=== PATIENT | female | born 2000 | race Hispanic/Latino ===

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

== ENCOUNTER 2018-01-01 23:34 | Inpatient (IN) | payer OTHER ==
[2018-01-02] MEDS: AMPICILLIN SOD 2 GM in APPROPRIATE DILUENT 20 ML IV (01:37)
[2018-01-02] MEDS: LACTATED RINGER'S 1000 ML IV (01:37)
[2018-01-02 01:40] LABS: HEMATOCRIT 29.2 % (36.0-47.0); MEAN CORPUSCULAR HEMOGLOBIN 24.2 pg (27.0-33.0); MEAN CORPUSCULAR HGB CONC 30.8 g/dl (32.0-36.5); MEAN CORPUSCULAR VOLUME 78.5 fl (80.0-96.0); PLATELET COUNT, AUTOMATED 210 10^3/uL (150-450); RED BLOOD COUNT 3.72 10^6/uL (4.00-5.40); RED CELL DISTRIBUTION WIDTH 16.8 % (11.5-14.5); WHITE BLOOD COUNT 14.1 10^3/uL (4.0-10.0)
[2018-01-02] MEDS: LR 1,000 ML IV (02:46)
[2018-01-02] MEDS: OXYTOCIN DRIP 30 UNITS in APPROPRIATE DILUENT 1 EA IV (03:29)
[2018-01-02 03:40] LABS: CHLAMYDIA DNA AMPLIFICATION NEGATIVE (NEGATIVE); GC DNA AMPLIFICATION NEGATIVE (NEGATIVE)
[2018-01-02] MEDS ORDERED: FENTANYL 2MCG/ML ROPIVACAINE 0.2% IN 0.9% NACL 200ML IVBAG As Ordered ×2 (03:47→03:52)
[2018-01-02] MEDS ORDERED: EPIDURAL COMMENT XX (05:00)
[2018-01-02] MEDS ORDERED: ONDANSETRON 4MG/2ML VIAL (J2405) IV (05:00)
[2018-01-02] MEDS ORDERED: diphenhydrAMINE INJ 50MG/ML VIAL (J1200) IV (05:00)
[2018-01-02] MEDS ORDERED: EPIDURAL/PCA KEYS XX (05:00)
[2018-01-02] MEDS ORDERED: NALOXONE INJ 0.4 MG/1 ML VIAL (J2310) IV (05:00)
[2018-01-02] MEDS ORDERED: REFRIGERATOR IV KEYS XX (05:00)
[2018-01-02] MEDS ORDERED: LACTATED RINGER'S 1000 ML IV (05:00)
[2018-01-02] MEDS ORDERED: FENTANYL/ROPIVACAINE/NACL BAG 200 ML EPIDURAL (05:00)
[2018-01-02] MEDS: AMPICILLIN SOD 1 GM in APPROPRIATE DILUENT 10 ML IV ×2 (05:28→09:53)
[2018-01-02] MEDS: ePHEDrine SULFATE 25 MG/5 ML(5MG/ML) SYRINGE IV (06:05)
[2018-01-02] MEDS ORDERED: ACETAMINOPHEN 500 MG TAB As Ordered (12:12)
[2018-01-02] MEDS: ACETAMINOPHEN 500 MG TAB PO (12:14)
[2018-01-02 13:59] LABS: CORD GAS ABE A -2.8; CORD GAS HCO3 A 22.6 MEQ/L; CORD GAS O2 SAT A 45.9 %; CORD GAS PCO2 A 41.6 mmHg; CORD GAS PH A 7.353 UNITS; CORD GAS SBC A 20.8 MEQ/L; CORD GAS TCO2 A 23.9 MEQ/L
[2018-01-02] MEDS ORDERED: RHOGAM 300 MCG (1500 IU) INJ (J2790) IM (14:00)
[2018-01-02] MEDS ORDERED: DIBUCAINE 1% OINTMENT 30GM TOP (14:00)
[2018-01-02] MEDS ORDERED: OXYTOCIN DRIP 30 UNITS in APPROPRIATE DILUENT 1 EA IV (14:00)
[2018-01-02] MEDS ORDERED: METHYLERGONOVINE MALEATE 0.2 MG TAB PO (14:00)
[2018-01-02] MEDS ORDERED: ACETAMINOPHEN 500 MG TAB PO (14:00)
[2018-01-02] MEDS ORDERED: IBUPROFEN 800 MG TAB PO (14:00)
[2018-01-02] MEDS ORDERED: MOM 30ML SUSPENSION UDC PO (14:00)
[2018-01-02] MEDS ORDERED: DOCUSATE SODIUM 100 MG CAP PO (14:00)
[2018-01-02] MEDS ORDERED: ANUSOL HC CREAM 30GM TOP (14:00)
[2018-01-02 14:01] LABS: CORD GAS ABE V -0.8; CORD GAS HCO3 V 24.3 MEQ/L; CORD GAS O2 SAT V 61.3 %; CORD GAS PCO2 V 41.6 mmHg; CORD GAS PH V 7.384 UNITS; CORD GAS PO2 V 24.7 mmHg; CORD GAS SBC V 22.8 MEQ/L; CORD GAS TCO2 V 25.6 MEQ/L
[2018-01-02] MEDS: MEASLES,MUMPS,RUBELLA VACCINE INJ (MMR-II) (90707) SC (18:19)
[2018-01-02 20:07] LABS: HEMATOCRIT 26.3 % (36.0-47.0); HEMOGLOBIN 8.3 g/dl (12.0-15.5); MEAN CORPUSCULAR HEMOGLOBIN 24.4 pg (27.0-33.0); MEAN CORPUSCULAR HGB CONC 31.6 g/dl (32.0-36.5); MEAN CORPUSCULAR VOLUME 77.4 fl (80.0-96.0); PLATELET COUNT, AUTOMATED 200 10^3/uL (150-450)
[2018-01-03 07:11] LABS: HEMATOCRIT 24.8 % (36.0-47.0); HEMOGLOBIN 7.7 g/dl (12.0-15.5); MEAN CORPUSCULAR HEMOGLOBIN 23.9 pg (27.0-33.0); PLATELET COUNT, AUTOMATED 188 10^3/uL (150-450); RED BLOOD COUNT 3.22 10^6/uL (4.00-5.40); RED CELL DISTRIBUTION WIDTH 16.9 % (11.5-14.5); WHITE BLOOD COUNT 18.8 10^3/uL (4.0-10.0)
[2018-01-03] MEDS: PRENATAL VITAMINS CHEWABLE TABLET PO (07:54)
[2018-01-03] MEDS: INFLUENZA QUADRIVALENT PF VACCINE 0.5ML SYRINGE (90686) IM (09:00)
== END 2018-01-03 10:00 | disposition home or self-care (01) | DRG 775 ==
LOC: M LDO 23:34 → M LDI 01-02 01:31 → M OBS 01-02 17:57
PROVIDERS: Obstetrics & Gynecology
PROC: 10E0XZZ Delivery of Products of Conception, External Approach (ICD-10-PCS; principal; 2018-01-02)
PROC: 10907ZC Drainage of Amniotic Fluid, Therapeutic from Products of Conception, Via Natural or Artificial Opening (ICD-10-PCS; 2018-01-02)
PROC: 0HQ9XZZ Repair Perineum Skin, External Approach (ICD-10-PCS; 2018-01-02)
DX: O99.824 Streptococcus B carrier state complicating childbirth (principal); Z37.0 Single live birth; Z3A.39 39 weeks gestation of pregnancy; O70.0 First degree perineal laceration during delivery; O69.3XX0 Labor and delivery complicated by short cord, not applicable or unspecified

== ENCOUNTER → 2018-10-29 | Outpatient (REF) | payer OTHER ==
[~2018-10-29] MED LIST: ANUS2.5C2 TOP; IBUP-1114 PO; MAPA500T2 PO; NUPE1OIN2 TOP; PRENTAB9 PO
== END ==
LOC: M LAB REF 17:10
PROVIDERS: ATTEND Advanced Practice Midwife
DX: R30.0 Dysuria (principal)

== ENCOUNTER 2020-01-01 03:57 | Inpatient (IN) | payer OTHER ==
[~2020-01-01] VITALS: Ht 162.6 cm; Wt 77.3 kg
[2020-01-01] MEDS ORDERED: OXYTOCIN 30 UNITS IN 0.9% NaCl 500ML IV BAG (J2590) As Ordered ONE (04:07)
--- NOTE | 2020-01-01 04:45 | DNPDOC ---
[facility] Delivery Note Delivery Note DATE OF DELIVERY: 01/01/20 at 0408 PREDELIVERY DIAGNOSIS: 39-3/7 weeks' gestation and labor. POST DELIVERY DIAGNOSIS: Delivered. PROCEDURE: Spontaneous vaginal delivery. SENIOR RISK ANALYST: Parish De La Cruz CNM, ALEX ANESTHESIA: none. ESTIMATED BLOOD LOSS: 250 mL. FINDINGS: 8 pounds 2 ounces; 3690 grams; male , Score 8/9, precipitous labor. DELIVERY SUMMARY: Patient is a 19-year-old female who is now a who presented to L&D in active labor. She is a patient of [facility]. Upon arrival to the unit her water broke spontaneously and patient reported she felt like she had to push. She was examined by a nurse and found to be fully dilated. I was called into the room to assist with the delivery. The patient was fully dilated at 0408 and had a vaginal delivery at 0409. Dr. Mccallum was notified with arrival of patient. She pushed and the head delivered JOSE with restitution The anterior shoulder delivered with ease and the corpus immediately followed. The baby was placed [id number] active and crying. The cord was clamped x2 and cut by the patient. The placenta delivered spontaneously and intact 0413. Uterine hemostasis was achieved via fundal massage and IM Pitocin. The vagina, cervix, and perineum was inspected and found to be intact. She plans to attempt . All counts of instruments and sponges are correct. Both mom and baby are in stable condition. PARISH DE LA CRUZ CNM Jan 01, 2020 04:45
--- NOTE | 2020-01-01 04:45 | HPEPDOC ---
Obstetrical History & Physical General Date of Admission Jan 01, 2020 at 04:12 History of Present Illness 19yo at 39+2 presented in active labor and was delivered by YOLIE De La Cruz, her delivery was uncomplicated. She denies any complaints at this time. Past Medical History Past Obstetrical History : Past Obstetrical History: Multigravida Past Medical History Medical History Denies Surgical History: Denies/None Family History Significant Family History: No pertinent family hx Social History Marital Status: Family situation: Spouse/partner home Psychosocial History: No pertinent psych hx * Smoker: non-smoker Alcohol: Denies Drugs: denies Imunizations Tdap status: current Influenza Status: needs Allergies Coded Allergies: No Known Allergies (Unverified , 01/01/20) Medications Scheduled No.137/Iron/Folic Acd ( Vitamin Tablet) 1 Tab Tab, 1 TAB PO DAILY Scheduled PRN Acetaminophen (Mapap) 500 Mg Tab, 1,000 MG PO Q6HP PRN for MILD PAIN (PS 1-4) Dibucaine (Nupercainal) 1 % Oin, 1 DOSE TOP Q4HP PRN for PAIN APPLY TO PERINEUM Hydrocortisone (Anusol-Hc) 2.5 % Cre, 1 EACH TOP Q4HP PRN for DISCOMFORT APPLY TO HEMORRHOIDS Ibuprofen (Ibuprofen) 400 Mg Tab, 800 MG PO Q8HP PRN for MODERATE PAIN (PS 5-7) Physical Examination Physical Examination GENERAL: Alert and oriented times three. BREAST: . ABDOMEN: Gravid and non-tender to touch. FETUS: Is vertex (VTX) by sterile vaginal examination (SVE), fetus is vertex (VTX) by Howie. HEART RATE: Regular rate and rhythm. LUNGS: Clear to auscultation (CTA). EXTREMITIES: No edema. No clonus. Deep tendon reflexes (DTRs) + . Laboratory Data [facility] Laboratory Tests 2 01/01/20 04:28: Serology Scanned Report Hepatitis B Testing Urine Culture: Contaminated Pertinent Laboratoy Data Blood Type: O+ RBC Antibody Screen: Negative HIV: Negative Hepatitis B: Negative Rapid Plasma Reagin: Nonreactive Rubella: Immune Varicella: Immune Chlamydia/Gonorrhea: Negative Group B Streptococcus: Negative Glucose Tolerance Test: 105 Assessment/Plan Assessment 19yo at 39+2 presented in active labor and was delivered by YOLIE De La Cruz, her delivery was uncomplicated. She denies any complaints at this time. APC - varicella non-immune Plan - routine PPC - contraception: to be discussed PPD1 - feeding: breast - ibporofen and tylenol for pain - VS per routine RICH GUO DO Jan 01, 2020 04:45
[2020-01-01] MEDS ORDERED: IBUPROFEN 600MG TAB PO PRN (05:00)
[2020-01-01] MEDS ORDERED: OXYTOCIN INJ 10 UNITS/ML VIAL (J2590) IM ONE (05:00)
[2020-01-01] MEDS ORDERED: DOCUSATE SODIUM 100 MG CAP PO PRN (05:00)
[2020-01-01] MEDS ORDERED: ACETAMINOPHEN TAB 650MG DOSE (2X325MG) PO PRN (05:00)
[2020-01-01] MEDS ORDERED: DIBUCAINE 1% OINTMENT 30GM TOP PRN (05:00)
[2020-01-01] MEDS: IBUPROFEN 800 MG TAB PO PRN ×2 (05:35→20:28)
[2020-01-01 05:40] LABS: HEMOGLOBIN 10.3 g/dl (12.0-15.5); MEAN CORPUSCULAR HEMOGLOBIN 24.9 pg (27.0-33.0); MEAN CORPUSCULAR HGB CONC 31.2 g/dl (32.0-36.5); MEAN CORPUSCULAR VOLUME 79.7 fl (80.0-96.0); PLATELET COUNT, AUTOMATED 164 10^3/uL (150-450); RED BLOOD COUNT 4.14 10^6/uL (4.00-5.40); WHITE BLOOD COUNT 12.2 10^3/uL (4.0-10.0)
[2020-01-01 06:00] VITALS: BP 103/57
[2020-01-01] MEDS: PRENATAL VITAMINS CHEWABLE TABLET PO SCH (09:26)
[2020-01-01] MEDS: ACETAMINOPHEN 500 MG TAB PO PRN (09:26)
[2020-01-01 18:00] VITALS: BP 108/55
[2020-01-02 06:00] VITALS: BP 103/64
[2020-01-02] MEDS ORDERED: DIBU10OI TOP (07:39)
[2020-01-02] MEDS ORDERED: IBUP80TA PO (07:39)
[2020-01-02] MEDS ORDERED: DOCU100C16 PO (07:39)
[2020-01-02] MEDS: ACETAMINOPHEN 500 MG TAB PO PRN (07:44)
[2020-01-02] MEDS: PRENATAL VITAMINS CHEWABLE TABLET PO SCH (07:44)
--- NOTE | 2020-01-03 17:59 | IPN ---
DATE: 01/01/2020 HISTORY: This patient requested a circumcision of her male . PLAN: After discussing risks and benefits of the circumcision, the medical and non-medical indications, penile block and after care, expressed understanding of penile block and after care, signed the Consent Form, all questions were answered, 20 minute discussion, we await the clearance by the physician asst. HAYDEN
--- NOTE | 2020-01-18 13:35 | DSES ---
DATE OF ADMISSION: 01/01/2020 DATE OF DISCHARGE: 01/02/2020 BRIEF HISTORY: This lady is a 19-year-old 2 para 1 who was admitted at 37-3/7 weeks in spontaneous labor. She had a spontaneous vaginal delivery of a live- male infant weight 8 pounds 2 ounces, Apgars of 8 and 9 at one and five minutes respectively. On her second day, we discussed phlebitis, cystitis, mastitis, endometritis, and cellulitis, diet, exercise, pain management, perineal, breast, and wound care. On discharge, her blood pressure was 102/64, respirations 16, pulse 74, temperature is 98.4. The rest of the examination is unremarkable. She is normocephalic, atraumatic. Neck full range of motion. Pupils equal and reactive to light. Distal pulses are symmetric. No evidence of DVT, PE or superficial phlebitis. Chest is clear bilaterally at the bases with no wheezes or rhonchi. No CVA tenderness. Abdomen was soft. Four quadrant bowel sounds are noted. Uterus is 2 below. Perineum is intact. She has no issues with nausea, vomiting, diarrhea or constipation. No urgency or frequency. Her admitting hemoglobin 10.3, hematocrit 33.0 and platelets 164. In summary, we have a term gestation that delivered a live- male . Plans are to epic cupid analyst [facility] at [facility] and a 6-week checkup with [facility]. All questions were answered; 20-minute discussion. Patient was discharged improved. [facility]
== END 2020-01-02 12:05 | disposition home or self-care (01) | DRG 807 ==
LOC: M LDO 03:57 → M LDI 04:12 → M OBS 05:45
PROVIDERS: ADMIT Obstetrics & Gynecology; ATTEND Obstetrics & Gynecology
PROC: 10E0XZZ Delivery of Products of Conception, External Approach (ICD-10-PCS; principal; 2020-01-01)
DX: O80 Encounter for full-term uncomplicated delivery (principal); Z37.0 Single live birth; Z3A.39 39 weeks gestation of pregnancy